=== PATIENT | female | born 1980 | race African-American/Black ===

== ENCOUNTER 2017-01-26 21:08 | Emergency (ER) | payer OTHER ==
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
== END 2017-01-26 23:25 | disposition home or self-care (01) ==
LOC: CFTX 21:08 → CED 21:08 → CFTX 22:40
DX: S16.1XXA Strain of muscle, fascia and tendon at neck level, initial encounter (principal); S29.012A Strain of muscle and tendon of back wall of thorax, initial encounter; F17.200 Nicotine dependence, unspecified, uncomplicated; V49.40XA Driver injured in collision with unspecified motor vehicles in traffic accident, initial encounter; Y92.410 Unspecified street and highway as the place of occurrence of the external cause
CPT/HCPCS: 72040; 72072; 99284

== ENCOUNTER 2017-03-04 23:01 | Emergency (ER) | payer OTHER ==
[~2017-03-04] VITALS: Ht 167.6 cm; Wt 131.5 kg
== END 2017-03-05 01:45 | disposition home or self-care (01) ==
LOC: CED 23:01
DX: L05.01 Pilonidal cyst with abscess (principal); F17.200 Nicotine dependence, unspecified, uncomplicated
CPT/HCPCS: 10060; 99282

== ENCOUNTER 2017-03-22 10:25 | Emergency (ER) | payer OTHER ==
[~2017-03-22] VITALS: Ht 167.6 cm; Wt 127.0 kg
--- NOTE | ~2017-03-22 | CR63 ---
[facility] A Service of [facility] RADIOLOGY TEXT RESULTS PATIENT: FAITH CORTEZ LOCATION: [place] : 80 UNIT #: [id number] AGE: [address]: Juliana Ramirez SEX: F ORDER DR: [id number] [facility] [address] [place], [place] [address] [id number] E MR#: [id number] Acc #: [id number] NAME: FAITH CORTEZ : 1980 SEX: F STUDY DATE/TIME: 03/22/2017 UNIT: [facility] ROOM: STUDY DESCRIPTION: CR Chest 2 View Attending Physician: Juliana Ramirez P.A.-C. Ordering Physician: Juliana Ramirez P.A.-C. Primary Care Physician: Primary Care Physician No MEDICAL IMAGING REPORT This report is preliminary unless electronic signature is present EXAM Chest 2 views 03/22/2017 11:13 hours HISTORY 36-year-old woman with cough and congestion for 2 weeks. Shortness of air today. COMPARISON None. FINDINGS Upright PA and lateral views of the chest demonstrate heart size at the upper limits of normal. Mediastinal, hilar and aortic contours are normal. The lungs are clear. There is no effusion or pneumothorax. IMPRESSION 1. Heart size at the upper limits of normal. The lungs are clear and there are no effusions. Dictated by... Sona Lafleur M.D. THIS IS AN ELECTRONICALLY VERIFIED REPORT Sona Lafleur M.D. at 03/22/2017 2:31 PM SMM/verónica TD: 03/22/2017 12:33 JOB #: [id number] MEDICAL IMAGING REPORT Page 1 of 1 COPY
== END 2017-03-22 12:12 | disposition home or self-care (01) ==
LOC: CFTX 10:25 → CED 10:25 → CFTX 11:34
DX: J20.9 Acute bronchitis, unspecified (principal); R03.0 Elevated blood-pressure reading, without diagnosis of hypertension; F17.210 Nicotine dependence, cigarettes, uncomplicated; Z98.890 Other specified postprocedural states
CPT/HCPCS: 71020; 94640; 99284